=== PATIENT | male | born 1980 | race American Indian/Alaskan Native ===

== ENCOUNTER 2017-12-15 09:17 | Emergency (ER) | payer SELFPAY ==
[2017-12-15 09:49] VITALS: BP 137/87
[2017-12-15] MEDS ORDERED: MOTRIN PO ONE (11:43)
--- NOTE | 2017-12-15 11:43 | Emergency Department Report ---
- General Chief Complaint: Upper Respiratory Infection Stated Complaint: COUGH Time Seen by Provider: 12/15/17 11:42 Source: patient Mode of arrival: Ambulatory Limitations: No Limitations - History of Present Illness Initial Comments: 37-year-old male past medical history smoker presents with complaint of 2-3 days of persistent cough with some body aches. Patient states he has been taking [id number] cold and flu medicines which have given him significant relief of symptoms. Patient is awake alert and oriented 3 not in acute distress and nontoxic-appearing speaking in full sentences. Patient states that his employer demanded that he get himself medically evaluated before he can return to work. Patient denies any rash abdominal pain nausea vomiting diarrhea. Patient states that his primary symptom is persistent nonproductive cough. MD Complaint: cough, rhinorrhea Onset/Timin -: days(s) Improves With: OTC cold medicine Context: sick contacts Associated Symptoms: cough Treatments Prior to Arrival: none - Related Data Previous Rx's Medication Instructions Recorded Last Taken Type Ibuprofen [Motrin 800 MG tab] 800 mg PO Q8HR PRN #30 tablet 11/09/15 Unknown Rx traMADol [Ultram 50 MG tab] 50 mg PO Q6HR PRN #20 tablet 11/09/15 Unknown Rx Albuterol Sulfate [Ventolin Hfa] 1 puff IH Q4H PRN #1 hfa.aer.ad 12/15/17 Unknown Rx Azithromycin [Zithromax Z-HARJIT] 250 mg PO QDAY #1 pack 12/15/17 Unknown Rx Benzonatate [Tessalon Perles] 100 mg PO Q8HR PRN #20 capsule 12/15/17 Unknown Rx Ibuprofen [Motrin 800 MG tab] 800 mg PO ONCE PRN #20 tablet 12/15/17 Unknown Rx Phenylephrine/Dm/Acetaminop/GG 10 ml PO Q4H PRN #1 liquid 12/15/17 Unknown Rx [Mucinex Zriv-Tks-Gtfrtspsqd Lq] Allergies Allergy/AdvReac Type Severity Reaction Status Date / Time coconut AdvReac Swelling Verified 12/15/17 09:45 ED Review of Systems ROS: Stated complaint: COUGH Other details as noted in HPI Constitutional: malaise. denies: chills, fever Eyes: denies: eye pain, eye discharge, vision change ENT: denies: ear pain, throat pain Respiratory: cough. denies: shortness of breath, wheezing Cardiovascular: denies: chest pain, palpitations Endocrine: no symptoms reported Gastrointestinal: denies: abdominal pain, nausea, diarrhea Genitourinary: denies: urgency, dysuria Musculoskeletal: denies: back pain, joint swelling, arthralgia Skin: denies: rash, lesions Neurological: denies: headache, weakness, paresthesias Psychiatric: denies: anxiety, depression Hematological/Lymphatic: denies: easy bleeding, easy bruising ED Past Medical Hx - Past Medical History Previous Medical History?: No - Surgical History Hx Breast Surgery: Yes (CYST REMOVED FROM LEFT NIPPLE) - Social History Smoking Status: Current Every Day Smoker Substance Use Type: None - Medications Home Medications: Home Medications Medication Instructions Recorded Confirmed Last Taken Type Ibuprofen [Motrin 800 MG tab] 800 mg PO Q8HR PRN #30 tablet 11/09/15 Unknown Rx traMADol [Ultram 50 MG tab] 50 mg PO Q6HR PRN #20 tablet 11/09/15 Unknown Rx Albuterol Sulfate [Ventolin Hfa] 1 puff IH Q4H PRN #1 hfa.aer.ad 12/15/17 Unknown Rx Azithromycin [Zithromax Z-HARJIT] 250 mg PO QDAY #1 pack 12/15/17 Unknown Rx Benzonatate [Tessalon Perles] 100 mg PO Q8HR PRN #20 capsule 12/15/17 Unknown Rx Ibuprofen [Motrin 800 MG tab] 800 mg PO ONCE PRN #20 tablet 12/15/17 Unknown Rx Phenylephrine/Dm/Acetaminop/GG 10 ml PO Q4H PRN #1 liquid 12/15/17 Unknown Rx [Mucinex Jauf-Vtc-Gjsnrghguk Lq] ED Physical Exam - General Limitations: No Limitations General appearance: alert, in no apparent distress - Head Head exam: Present: atraumatic, normocephalic - Eye Eye exam: Present: normal appearance, PERRL, EOMI - ENT ENT exam: Present: mucous membranes moist - Neck Neck exam: Present: normal inspection - Respiratory Respiratory exam: Present: normal lung sounds bilaterally. Absent: respiratory distress - Cardiovascular Cardiovascular Exam: Present: regular rate, normal rhythm. Absent: systolic murmur, diastolic murmur, rubs, gallop - GI/Abdominal GI/Abdominal exam: Present: soft, normal bowel sounds - Rectal Rectal exam: Present: deferred - Extremities Exam Extremities exam: Present: normal inspection - Back Exam Back exam: Present: normal inspection - Neurological Exam Neurological exam: Present: alert, oriented X3 - Psychiatric Psychiatric exam: Present: normal affect, normal mood - Skin Skin exam: Present: warm, dry, intact, normal color. Absent: rash ED Course Vital Signs 12/15/17 09:46 Temperature 99.5 F Pulse Rate 85 Respiratory 16 Rate Blood Pressure 137/87 O2 Sat by Pulse 96 Oximetry ED Medical Decision Making - Medical Decision Making A/P: Flulike illness, URI 1-albuterol inhaler when necessary, Mucinex, Motrin when necessary 2-upon my review of chest x-ray possible right sided perihilar bronchial thickening, will treat empirically with azithromycin as patient is a heavy smoker for bronchitis 3-vital signs stable for discharge 4- follow-up with primary care. Patient not interested in Tamiflu at this time. I advised patient to return to the ED for lethargy inability to tolerate by mouth fluid or food chest pain shortness of breath at rest palpitations Critical care attestation.: If time is entered above; I have spent that time in minutes in the direct care of this critically ill patient, excluding procedure time. ED Disposition Clinical Impression: Flu-like symptoms Upper respiratory infection Qualifiers: URI type: unspecified URI Qualified Code(s): J06.9 - Acute upper respiratory infection, unspecified Reactive airway disease Qualifiers: Asthma severity: mild Asthma persistence: intermittent Asthma complication type : uncomplicated Qualified Code(s): J45.20 - Mild intermittent asthma, uncomplicated Disposition: - TO HOME OR SELFCARE Is pt being admited?: No Does the pt Need Aspirin: No Condition: Stable Instructions: Reactive Airways Disease (ED), Viral Syndrome (ED) Prescriptions: Albuterol Sulfate [Ventolin Hfa] 1 puff IH Q4H PRN #1 hfa.aer.ad PRN Reason: Cough Benzonatate [Tessalon Perles] 100 mg PO Q8HR PRN #20 capsule PRN Reason: Cough Ibuprofen [Motrin 800 MG tab] 800 mg PO ONCE PRN #20 tablet PRN Reason: Pain Phenylephrine/Dm/Acetaminop/GG [Mucinex Reui-Qdl-Ssdgoinklv Lq] 10 ml PO Q4H PRN #1 liquid PRN Reason: Cough Referrals: [facility] [Outside] - [facility] Time of Disposition: 11:47
[2017-12-15] MEDS ORDERED: DUONEB *Not for PRN Use IH ONE (11:51)
--- NOTE | 2017-12-15 13:49 | XRay Report ---
ROUTINE CHEST, TWO VIEWS: HISTORY: Cough, wheezing. The trachea, heart, mediastinal contour, lung nicolas and bony thorax are unremarkable. IMPRESSION: Unremarkable chest x-ray.
== END 2017-12-15 12:48 | disposition home or self-care (01) ==
LOC: ED 09:17
DX: J06.9 Acute upper respiratory infection, unspecified (principal); J45.909 Unspecified asthma, uncomplicated; F17.200 Nicotine dependence, unspecified, uncomplicated; Z91.018 Allergy to other foods
CPT/HCPCS: 71046; 94640; 99283